=== PATIENT | male | born 1975 | race Caucasian/White ===

== ENCOUNTER 2018-02-25 09:19 | Outpatient (REF) | payer SELFPAY ==
[2018-02-25 20:14] LABS: Cholesterol 226 mg/dL (50-200); Glucose 100 mg/dL (70-100); HDL Cholesterol 78 mg/dL (40-60); LDL CHOLESTEROL 134 mg/dL (<100); Triglyceride 67 mg/dL (30-150)
== END 2018-02-25 09:39 ==
LOC: NCHCN 09:19
PROVIDERS: PCP Physician Assistant; Visit Provider Physician Assistant Medical
DX: Z00.00 Encounter for general adult medical examination without abnormal findings (principal); Z13.1 Encounter for screening for diabetes mellitus; Z13.220 Encounter for screening for lipoid disorders
CPT/HCPCS: 80061; 82947; 83721

== ENCOUNTER 2024-06-10 00:28 | Outpatient (CLI) | payer OTHER, SELFPAY ==
--- NOTE | 2024-06-10 06:30 | DI.RAD_ITS ---
Exam(s) XR CHEST 2V PA LATERAL EXAM: XR CHEST 2V PA LATERAL CLINICAL HISTORY: cough,r05.9 TECHNIQUE: 2D digital imaging was performed of the chest. Two images were obtained. PA and lateral views were obtained. COMPARISON: No exams were available for comparison FINDINGS: MEDIASTINUM: Normal. HEART: Normal. PULMONARY VASCULATURE: Normal. LUNGS: Clear. PLEURAL SPACE: No pleural effusion or pneumothorax. BONE:Within normal limits for the patient's age. OTHER FINDINGS:Normal. IMPRESSION: No acute pulmonary findings. DATA REPOSITORY: RADIATION DOSE DELIVERED:
== END 2024-06-10 00:48 ==
LOC: DI 00:28
PROVIDERS: PCP Nurse Practitioner; Visit Provider Nurse Practitioner
DX: R05.9 Cough, unspecified (principal)
CPT/HCPCS: 71046

== ENCOUNTER 2025-02-07 00:09 | Outpatient (CLI) | payer OTHER, SELFPAY ==
[2025-02-07 17:31] LABS: Uric Acid 5.4 mg/dL (3.5-7.2)
[2025-02-07 17:34] LABS: C-Reactive Protein < 0.50 mg/dL (<or=0.5)
[2025-02-09 10:21] LABS: Lyme Ab w Rflx to Lyme Confirm Negative (Negative)
[2025-02-11 12:54] LABS: B. miyamotoi PCR Negative (Negative); Babesia divergens/MO-1 Negative (Negative); Ehrlichia muris eauclairensis Negative (Negative)
== END 2025-02-07 00:10 | disposition home or self-care (01) ==
LOC: LBO 00:09
PROVIDERS: PCP Nurse Practitioner; Referring Provider Emergency Medicine; Visit Provider Emergency Medicine
DX: M19.072 Primary osteoarthritis, left ankle and foot (principal)
CPT/HCPCS: 36415; 87798; 84550; 86140; 86618

== ENCOUNTER 2025-02-07 10:36 | Outpatient (CLI) | payer OTHER, SELFPAY ==
--- NOTE | 2025-02-07 09:45 | DI.RAD_ITS ---
Exam(s) XR ANKLE LT COMPLETE EXAM: XR ANKLE LT COMPLETE CLINICAL HISTORY: LEFT ANKLE ARTHRITIS,M19.072 TECHNIQUE: 2D digital imaging was performed. Three views. COMPARISON: No exams were available for comparison FINDINGS: BONES: No acute fracture is present. No bony destructive lesion is seen. JOINTS:The ankle mortise is normally aligned. There is moderate narrowing of the superior tibiotalar joint space. There is mild spurring at the tip of the medial malleolus and adjacent aspect of the talus. There is also spurring seen anteriorly at the distal tibia. There are small spurs at the dorsal talonavicular joint. SOFT TISSUE: Normal. IMPRESSION: Moderate degenerative changes of the left ankle. DATA REPOSITORY: RADIATION DOSE DELIVERED:
== END 2025-02-07 10:56 ==
LOC: DI 10:36
PROVIDERS: PCP Nurse Practitioner; Visit Provider Emergency Medicine
DX: M19.072 Primary osteoarthritis, left ankle and foot (principal)
CPT/HCPCS: 73610